=== PATIENT | female | born 1930 | race Caucasian/White ===

== ENCOUNTER 2017-06-08 06:41 | Emergency (ER) | payer MEDICARE ==
[2017-06-08] MEDS ORDERED: ONDANSETRON 4 MG TAB.RAPDIS PO ONE (07:01)
[2017-06-08] MEDS ORDERED: VALACYCLOVIR HCL 500 MG TABLET PO ONE (07:10)
[2017-06-08] MEDS ORDERED: HYDROCODONE/ACETAMINOPHEN 5-325 MG TABLET PO ONE (07:10)
[2017-06-08] MEDS ORDERED: PREDNISONE 20 MG TABLET PO ONE (07:10)
--- NOTE | 2017-06-08 09:10 | ER Document Report ---
ED General - General Chief Complaint: Headache Stated Complaint: HEAD PAIN/NAUSEA/VOMITING Time Seen by Provider: 06/08/17 06:54 TRAVEL OUTSIDE OF THE [place] IN LAST 30 DAYS: No - HPI Patient complains to provider of: Facial pain headache Notes: Patient coming in for facial pain headache ongoing last 24-48 hours. Patient states that time the rashes developed on her face. Patient denies any ocular symptoms blurry vision double vision. Patient denies any fevers chills nausea vomiting diarrhea. Patient states that she has had chickenpox in the past is never been diagnosed with shingles. Upon my evaluation patient has an obvious shingles rash across her face no lesions on her nose. Patient otherwise looks to be no obvious distress. Patient describes pain as sharp mostly in the front of her head and where the rashes on her face. - Related Data Allergies/Adverse Reactions: No Known Allergies Allergy (Unverified 06/30/11 11:08) Past Medical History - Social History Smoking Status: Unknown if Ever Smoked Frequency of alcohol use: None Family History: CAD, DM, Hyperlipidemia, Hypertension, Malignancy Patient has suicidal ideation: No Patient has homicidal ideation: No - Past Medical History Cardiac Medical History: Reports: Hx Coronary Artery Disease, Hx Hypercholesterolemia, Hx Hypertension Denies: Hx Heart Attack Pulmonary Medical History: Denies: Hx Asthma Neurological Medical History: Denies: Hx Cerebrovascular Accident, Hx Seizures Endocrine Medical History: Reports: Hx Diabetes Mellitus Type 2 Renal/ Medical History: Reports: Hx Ectopic . Denies: Hx Peritoneal Dialysis GI Medical History: Denies: Hx Hepatitis, Hx Hiatal Hernia, Hx Ulcer Musculoskeltal Medical History: Reports Hx Arthritis, Reports Hx Musculoskeletal Deformity, Reports Hx Musculoskeletal Trauma Infectious Medical History: Denies: Hx Hepatitis Past Surgical History: Reports: Hx Appendectomy, Hx Cardiac Catheterization, Hx Cholecystectomy, Hx Coronary Stent, Hx Gynecologic Surgery - Ectopic , Hx Hysterectomy, Hx Oral Surgery - [place] teeth removed, Hx Orthopedic Surgery - Left knee replacement, bunionectomy. Denies: Hx Mastectomy, Hx Open Heart Surgery, Hx Pacemaker Review of Systems - Review of Systems Constitutional: No symptoms reported EENT: No symptoms reported Cardiovascular: No symptoms reported Respiratory: No symptoms reported Gastrointestinal: No symptoms reported Genitourinary: No symptoms reported Female Genitourinary: No symptoms reported Musculoskeletal: No symptoms reported Skin: No symptoms reported Hematologic/Lymphatic: No symptoms reported Neurological/Psychological: Headaches - With a rash -: Yes All other systems reviewed and negative - No symptoms Physical Exam - Vital signs Vitals: Temp Pulse Resp BP Pulse Ox 98.7 F 140 H 24 H 144/106 H 99 06/08/17 06:41 06/08/17 06:41 06/08/17 06:41 06/08/17 06:41 06/08/17 06:41 Interpretation: Normal - General General appearance: Appears well, Alert - HEENT Head: Normocephalic, Atraumatic, Other - Patient has an obvious vesicular rash coming across the the forehead does not cross the midline of the face and the right side there is some redness along the zygomatic arch and slight blistering there is no lesions on the tip of the patient's nose. Eyes: Normal Conjunctiva: Normal Cornea: Normal Pupils: PERRL - Respiratory Respiratory status: No respiratory distress Chest status: Nontender Breath sounds: Normal Chest palpation: Normal - Cardiovascular Rhythm: Regular Heart sounds: Normal auscultation Murmur: No - Abdominal Inspection: Normal Distension: No distension Bowel sounds: Normal Tenderness: Nontender Organomegaly: No organomegaly - Back Back: Normal, Nontender - Extremities General upper extremity: Normal inspection, Nontender, Normal color, Normal ROM , Normal temperature General lower extremity: Normal inspection, Nontender, Normal color, Normal ROM , Normal temperature, Normal weight bearing. No: Usman's sign - Neurological Neuro grossly intact: Yes Cognition: Normal Orientation: AAOx4 Danika Coma Scale Eye Opening: Spontaneous [place] Coma Scale Verbal: Oriented [place] Coma Scale Motor: Obeys Commands Danika Coma Scale Total: 15 Speech: Normal Motor strength normal: LUE, RUE, LLE, RLE Sensory: Normal - Psychological Associated symptoms: Normal affect, Normal mood - Skin Skin Temperature: Warm Skin Moisture: Dry Skin Color: Normal Course - Re-evaluation Re-evalutation: 06/08/17 14:32 Patient underwent ocular examination of the right eye with no signs of dendritic lesions no fluorescein uptake. Patient was given hydrocodone for her headache with total relief of the pain. Patient according to family members regarding Ultram. Patient is also given valacyclovir and steroids. Patient is diabetic. Explained the patient steroids because her sugars elevated however will help out with her symptoms. Patient was encouraged to continue the valacyclovir hydrocodone for pain control Neurontin for neuropathic pain prednisone to aid in the nerve inflammation and Zofran for any nausea that she may have. I did contact ophthalmology that patient is seen in the past Dr. Painter and PCP Dr. Lofton no palpable clinic to the patient to call to schedule an appointment. Did recommend for the patient be followed up - Vital Signs Vital signs: Temp Pulse Resp BP Pulse Ox 97.8 F 140 H 13 113/68 97 06/08/17 09:46 06/08/17 06:41 06/08/17 09:02 06/08/17 09:02 06/08/17 09:02 Procedures - Eye Procedure Right Fluorescein applied: Right - No dendritic lesions no signs of fluorescein uptake Discharge - Discharge Clinical Impression: Shingles Qualifiers: Herpes zoster complications: without complications Qualified Code(s): B02.9 - Zoster without complications Condition: Good Disposition: HOME, SELF-CARE Instructions: Shingles ([facility]) Additional Instructions: Your examination today shows shingles rash on the right side of the face more likely causing her headache. Highly recommend that she follow-up with your primary care physician. Also recommend follow-up with your direct support staff member. Both should be seen in approximately 3-5 days. Please call the direct support staff member to schedule an appointment. Please call or walk-in to your primary care physician's office to be seen as a walk-in visit. Take medications as prescribed. Return to ER symptoms worsen. Valacyclovir is antiviral medication will help treat the shingles rash which is caused by a virus. Prednisone is also as prescribed will help out with the inflammation of the nerves. Gabapentin or Neurontin which is prescribed to help out with nerve pain. Please take as directed. Zofran is for any nausea that she may have. Hydrocodone is pain medication this is for severe pain. Do not take this with your tramadol. Prescriptions: Gabapentin [Neurontin 100 mg Capsule] 100 mg PO Q12 #20 capsule Hydrocodone/Acetaminophen [Hydrocodon-Acetaminophen 5-325] 1 each PO Q6 PRN #21 tablet PRN Reason: Ondansetron [Zofran Odt] 4 mg PO Q6 PRN #30 tab.rapdis PRN Reason: For Nausea/Vomiting Prednisone [Deltasone 20 mg Tablet] 3 tab PO DAILY 4 Days tablet Valacyclovir HCl [Valacyclovir] 1,000 mg PO TID #30 tablet Referrals: MING QUACH MD [Primary Care Provider] - 06/13/17 JASMINE PAINTER MD [ACTIVE STAFF] - 06/13/17
--- NOTE | 2017-06-08 09:30 | EKG REPORT ---
SEVERITY:- NORMAL ECG - SINUS RHYTHM : Confirmed by: Nick Holley 08-Jun-2017 09:29:52
[2017-06-08 09:48] VITALS: BP 113/68
== END 2017-06-08 09:46 | disposition home or self-care (01) ==
LOC: ER 06:41
DX: B02.9 Zoster without complications (principal); R51 Headache; R11.2 Nausea with vomiting, unspecified; E11.9 Type 2 diabetes mellitus without complications; Z90.49 Acquired absence of other specified parts of digestive tract
CPT/HCPCS: 93005; 99284; 93010; A9270 ×4; J7512; S0119